=== PATIENT | male | born 1980 | race Caucasian/White ===

== ENCOUNTER 2018-01-06 12:51 | Outpatient (CLI) | payer OTHER ==
--- NOTE | 2018-01-06 14:30 | MRI ---
MRI OF THE CERVICAL SPINE WITHOUT CONTRAST: Comparison: None. History: Neck pain with pain running down both arms. Technique: Multiplanar, multisequence MR images were obtained in the cervical spine without contrast. FINDINGS: Post-surgical changes are seen from anterior fusion of C6-7 with an anterior plate and screws. Disc d esiccation is seen. The vertebral bodies and intervertebral discs demonstrate normal height and align ment without fracture subluxation. The visualized cord demonstrates normal signal throughout. 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 C2-3: Unremarkable. C3-4: Unremarkable. C4-5: Unremarkable. C5-6: A small generalized concentric disc bulge is seen. Mild bilateral posterior facet arthrosis. Mi ld central canal stenosis. Mild bilateral neural foraminal stenosis. C6-7: This level is fused. No posterior facet arthrosis. No neural foramina or central canal stenosis . C7-T1: Unremarkable. IMPRESSION: Post-surgical changes of the cervical spine without significant neural foraminal or central canal rochelle nosis. POS: GRETCHEN
--- NOTE | 2018-01-06 15:17 | MRI ---
MRI LUMBAR SPINE WITHOUT CONTRAST: History: M54.16, lumbar radiculopathy. Comparison: None. FINDINGS: Kidneys unremarkable. No hydronephrosis. Background marrow signal is normal. Lumbar lordosis is maintained. ==== medullaris terminates at the superior endplate of L1. Levels are as well follows: T12-L1: Normal disc. No neural foraminal or spinal canal narrowing. L1-2: Normal disc. No neural foraminal or spinal canal narrowing. L2-3: Normal disc. No neural foraminal or spinal canal narrowing. L3-4: Normal disc. No neural foraminal or spinal canal narrowing. L4-5: Normal disc. No neural foraminal or spinal canal narrowing. Moderate facet arthropathy. L5-S1: Normal disc. No neural foraminal or spinal canal narrowing. Mild facet arthrosis. IMPRESSION: 1. No neural foraminal or spinal canal narrowing. 2. T1 and T2 hypointense focus of the anterior pole right kidney and ileus, probably representing a p roteinaceous or hemorrhagic cyst. Follow up ultrasound could be obtained. POS: GRETCHEN
== END 2018-01-06 12:52 | disposition home or self-care (01) ==
LOC: TBSIIMAG 12:51
PROVIDERS: ATTEND Physical Medicine & Rehabilitation
DX: M54.17 Radiculopathy, lumbosacral region (principal); M50.80 Other cervical disc disorders, unspecified cervical region; M25.511 Pain in right shoulder; R20.0 Anesthesia of skin; R93.421 Abnormal radiologic findings on diagnostic imaging of right kidney; Z98.890 Other specified postprocedural states
CPT/HCPCS: 72141; 72148

== ENCOUNTER 2018-02-22 15:13 | Outpatient (CLI) | payer OTHER | END 2018-02-22 15:14 | disposition home or self-care (01) | LOC: BICULT 15:13 | PROVIDERS: ATTEND Physical Medicine & Rehabilitation | DX: N28.1 Cyst of kidney, acquired (principal) | CPT/HCPCS: 76770 ==

== ENCOUNTER 2019-05-26 13:48 | Emergency (ER) | payer OTHER ==
[2019-05-26] MEDS ORDERED: Loperamide HCl 2 MG CAP ONE (14:49)
[2019-05-26] MEDS ORDERED: Ondansetron PF 4 MG/2 ML Vial ONE (14:49)
[2019-05-26 14:50] LABS: #Basophils 0.1 thou/uL (0.0-0.2); #Lymphocytes 0.9 thou/uL (1.20-3.40); #Monocytes 0.6 thou/uL (0.11-0.59); %Eosinophils 0.3 % (0.0-10.0); %Lymphocytes 11.2 % (21.0-51.0); %Monocytes 8.5 % (0.0-10.0); %Neutrophils 79.1 % (42.0-75.0); Hemoglobin 15.3 g/dL (14.0-18.0); Mean Corpuscular HGB CONC 33.5 g/dL (32.0-36.0); Mean Corpuscular Hemoglobin 29.9 pg (27.0-31.0); Mean Corpuscular Volume 89.3 fL (78.0-98.0); Mean Platelet Volume 8.2 fL (7.4-10.4); Platelet Count 201 thou/uL (130-400); RBC Distribution Width 12.4 % (11.5-14.5); Red Blood Cell (RBC) Count 5.11 mill/uL (4.70-6.10); White Blood Cell (WBC) Count 7.6 thou/uL (4.8-10.8)
[2019-05-26 15:07] LABS: ALT (SGPT) 62 U/L (8-55); AST (SGOT) 66 U/L (5-34); Albumin 4.5 g/dL (3.5-5.0); Alkaline Phosphatase 81 U/L (40-110); Anion Gap 14 mmol/L (10-20); BUN (Urea Nitrogen) 17 mg/dL (8.9-20.6); Bilirubin, Total 0.8 mg/dL (0.2-1.2); CK (CPK) 94 U/L (30-200); Calc. Creatinine Clearance 0 mL/min (70-130); Calcium 9.6 mg/dL (7.8-10.44); Carbon Dioxide 22 mmol/L (22-29); Chloride 107 mmol/L (98-107); Estimated GFR-MDRD 71; Glucose 123 mg/dL (70-105); Lipase 31 U/L (8-78); Potassium 3.8 mmol/L (3.5-5.1); Protein, Total 7.5 g/dL (6.0-8.3); Sodium 139 mmol/L (136-145)
--- NOTE | 2019-05-26 15:09 | CT ---
EXAM: Brain CTWithout contrast: HISTORY: Headache syncope COMPARISON: None FINDINGS: No focal mass or midline shift. No intra or extra-axial hemorrhage. Sinuses and mastoids are clear of acute process. IMPRESSION: No mass or bleed or other significant acute intracranial process.
== END 2019-05-26 17:31 | disposition home or self-care (01) ==
LOC: SCSER 13:48
DX: E86.0 Dehydration (principal); R55 Syncope and collapse; R19.7 Diarrhea, unspecified; R11.2 Nausea with vomiting, unspecified
CPT/HCPCS: 70450; 80053; 82550; 83605; 83690; 85025; 93005; 96361; 96374; J2405

== ENCOUNTER 2020-05-20 12:52 | Outpatient (CLI) | payer OTHER ==
[2020-05-20] MEDS ORDERED: Iopamidol 300 61% 50 ML VIAL FS ONE (13:30)
[2020-05-20] MEDS ORDERED: Gadobenate Dimeglumine 529 MG/1 ML (20ML VIAL) ONE (13:30)
[2020-05-20] MEDS ORDERED: Lidocaine 1% PF 10 ML AMP ONE (13:30)
[2020-05-20] MEDS ORDERED: EPINEPHrine 1 MG/ML AMP ONE (13:30)
--- NOTE | 2020-05-20 14:53 | RAD ---
PROCEDURE: Fluoroscopic left shoulder arthrogram INDICATION: Left shoulder pain COMPARISON: None TECHNIQUE: Informed consent was obtained. Preprocedure external grinder tender images were obtained of the left shoulde r. The patient was placed supine on the fluoroscopic table. A timeout was performed. Site overlying the left shoulder was prepped and draped in the usual sterile fashion. Buffered 1% lidocaine was admi nistered into the overlying subcutaneous tissues. Under fluoroscopic guidance, a 22-gauge spinal needle was guided down into the left glenohumeral joint. Confirmation of needle localization was conf irmed by injecting 1 cc of the buffered 1% lidocaine. Following this 8 6060of the dilute Multihance solution MR Mix: 23.5 mL solution containing 10 mL of 0.008 dilution of Multihance, 8 mL Isovue 300, 5 mL 1% Lidocaine, 0.5 mL of 1mg/mL Epinephrine was injected. Contrast was visualized within the left glenohumeral joint with fluoroscopy. The needle was removed. The injection site was then cleanse d and bandage. The patient tolerated the injection without difficulty. Fluoroscopic time: 0.4minutes Fluoroscopic dose: 49.5mcg/sq m FINDINGS: No acute osseous abnormality. IMPRESSION: Successful left shoulder arthrogram. The patient is to have a follow-up MRarthrogram of t he left shoulder. Please see this report for further details.
--- NOTE | 2020-05-20 15:37 | MRI ---
EXAM: MR arthrogram of the left shoulder DATE: 05/20/2020 3:15 PM INDICATION: History of prior rotator cuff repair; recent left shoulder injury; concern for recurrent rotator cuff injury COMPARISON: Left shoulder arthrogram radiographs dated May 20, 2020 FINDING: Multiplanar multisequence MR images were obtained of the left shoulder following intra-sheila cular administration of a dilute gadolinium solution. Please see the left shoulder arthrogram for details concerning the injection technique. There is moderate tendinosis of the supraspinatus and mild tendinosis of the infraspinatus. There is a focal full-thickness tear involving the anterior supraspinatus near the footprint measuring approximately 1.3 x 0.6 cm. There is no muscular atrophy. There is contrast within the subacromial venron bdeltoid space. There is postprocedural change most consistent with a prior distal clavicle excision with contrast entering the acromioclavicular joint. There is a type II acromion. Biceps tend on is located. The glenoid labrum is intact. The glenohumeral articular surface is normal-appearing. The anterior inferior glenohumeral labral ligamentous complex is intact. IMPRESSION: 1. Focal full-thickness tear of the anterior supraspinatus, near the footprint, measuring 1.3 x 0.6 c m. 2. Postprocedural change of a prior distal clavicle excision.
== END 2020-05-20 12:53 | disposition home or self-care (01) ==
LOC: RAD 12:52
PROVIDERS: ATTEND Orthopaedic Surgery
DX: Z47.89 Encounter for other orthopedic aftercare (principal); M75.122 Complete rotator cuff tear or rupture of left shoulder, not specified as traumatic; Z98.890 Other specified postprocedural states
CPT/HCPCS: 23350; A9577; J0171; J2001; Q9967